=== PATIENT | female | born 1975 | race Caucasian/White ===

== ENCOUNTER 2017-12-30 12:23 | Emergency (ER) | payer SELFPAY ==
[~2017-12-30] VITALS: Ht 165.1 cm; Wt 68.0 kg
[~2017-12-30 12:23] MED LIST: CIPR500T4 PO; DEPA500T PO; DEPA500T3 PO; DIPH1TAB36 PO; QUET100 PO
[2017-12-30 12:24] VITALS: BP 105/70; PULSE 89; RESP 22; TEMP 98.1; O2SAT 99
[2017-12-30 13:02] LABS: AUTOMATED NEUTROPHIL # 4.6 TH/MM3 (1.8-7.7); BASOPHIL # 0.1 TH/MM3 (0-0.2); BASOPHIL % 0.9 % (0.0-2.0); EOSINOPHIL # 0.2 TH/MM3 (0-0.4); EOSINOPHIL % 2.3 % (0.0-4.0); HEMATOCRIT 40.8 % (35.0-46.0); HEMOGLOBIN 13.7 GM/DL (11.6-15.3); LYMPH % 36.3 % (9.0-44.0); LYMPHOCYTE # 3.1 TH/MM3 (1.0-4.8); MEAN CELL VOLUME 86.3 FL (80.0-100.0); MEAN CORPUSCULAR HEMOGLOBIN 28.9 PG (27.0-34.0); MEAN CORPUSCULAR HGB CONC 33.5 % (32.0-36.0); MEAN PLATELET VOLUME 7.9 FL (7.0-11.0); MONO % 6.9 % (0.0-8.0); MONOCYTE # 0.6 TH/MM3 (0-0.9); NEUT % 53.6 % (16.0-70.0); PLATELET COUNT 330 TH/MM3 (150-450); RED BLOOD COUNT 4.73 MIL/MM3 (4.00-5.30); RED CELL DISTRIBUTION WIDTH 13.9 % (11.6-17.2); WHITE BLOOD COUNT 8.6 TH/MM3 (4.0-11.0)
[2017-12-30 13:18] LABS: BICARBONATE 28.7 MEQ/L (21.0-32.0); BLOOD UREA NITROGEN 12 MG/DL (7-18); CALCIUM 8.8 MG/DL (8.5-10.1); CHLORIDE 106 MEQ/L (98-107); CREATININE 1.06 MG/DL (0.50-1.00); GLOMERULAR FILTRATION RATE 57 ML/MIN (>89); GLUCOSE,RANDOM 68 MG/DL (74-106); SODIUM (NA) 141 MEQ/L (136-145)
[2017-12-30 13:23] LABS: TROPONIN I LESS THAN 0.02 NG/ML (0.02-0.05)
--- NOTE | 2017-12-30 13:58 | RADRPT ---
EXAM DATE/TIME: 12/30/2017 12:57 [place] COMPARISON: No previous studies available for comparison. INDICATIONS : Right side chest pains radiating into right shoulder and right arm numbness. MEDICAL HISTORY : None. SURGICAL HISTORY : None. ENCOUNTER: Initial ACUITY: 2 weeks PAIN SCORE: 8/10 LOCATION: Right chest FINDINGS: PA and lateral views of the chest demonstrate the lungs to be symmetrically aerated without evidence of mass, infiltrate or effusion. The cardiomediastinal contours are unremarkable. Osseous structure s are intact. CONCLUSION: 1. No acute cardiopulmonary disease. Louie Luis MD on December 30, 2017 at 13:54 Board Certified Radiologist. This report was verified electronically.
[2017-12-30 14:50] VITALS: BP 102/63; PULSE 71; RESP 18; O2SAT 98
[2017-12-30] MEDS ORDERED: KETO10 PO (14:56)
[2017-12-30] MEDS ORDERED: ZITHTAB PO (14:56)
--- NOTE | 2017-12-30 14:56 | PD ---
HPI Chief Complaint: Chest Pain Time Seen by Provider: 14:43 Travel History International Travel<30 days: No Contact w/Intl Traveler<30days: No Traveled to known affect area: No History of Present Illness HPI Patient comes in complaining of a two-week duration of a productive cough yellow sputum, which does not appear to be clearing. Patient is a 1 pack a day smoker. 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 Patient has not had much of the day off since he started working and now also complains of a right sided arm pain associated with tingling over the ulnar region. No alleviating or aggravating factors. No associated factors such as fever abdominal pain back pain nausea vomiting diarrhea or runny nose Allergy: No known drug allergy Past surgical history: Hernia repair Past medical history: Denies Denies any medications Family history risk of diabetes and hypertension PFSH Past Medical History Bipolar Disorder: Yes Anxiety: Yes Depression: Yes Cancer: No Cardiovascular Problems: No Diminished Hearing: No Endocrine: No Gastrointestinal Disorders: No Genitourinary: No Immune Disorder: No Musculoskeletal: No Neurologic: Yes Psychiatric: Yes (BELIEVES SHE IS UNDIAGNOSED) Reproductive: No Respiratory: No Immunizations Current: Yes : 2 Para: 1 Miscarriage: 1 : 0 Past Surgical History Other Surgery: Yes Social History Alcohol Use: Yes Tobacco Use: Yes (1 PPD) Substance Use: Yes (HX OF COCAINE) Allergies-Medications (Allergen,Severity, Reaction): Coded Allergies: diphenhydramine (Unverified Allergy, Severe, THROAT SWELLS, 12/30/17) Per pt. Reported Meds & Prescriptions Reported Meds & Active Scripts Active Review of Systems General / Constitutional: No: Fever Eyes: No: Visual changes HENT: No: Headaches Cardiovascular: Positive: Chest Pain or Discomfort Respiratory: No: Shortness of Breath Gastrointestinal: No: Abdominal Pain Genitourinary: No: Dysuria Musculoskeletal: No: Pain Skin: No Rash Neurologic: No: Weakness Psychiatric: No: Depression Endocrine: No: Polydipsia Hematologic/Lymphatic: No: Easy Bruising Physical Exam Narrative GENERAL: SKIN: Warm and dry. HEAD: Atraumatic. Normocephalic. EYES: Pupils equal and round. No scleral icterus. No injection or drainage. ENT: No nasal bleeding or discharge. Mucous membranes pink and moist. NECK: Trachea midline. No JVD. CARDIOVASCULAR: Regular rate and rhythm. RESPIRATORY: No accessory muscle use. RONCHI ON BREATH SOUNDS GASTROINTESTINAL: Abdomen soft, non-tender, nondistended. MUSCULOSKELETAL: Extremities without clubbing, cyanosis, or edema. No obvious deformities. FROM AT RIGHT SHOULDER/ELBOW AND EXCELLENT PERFUSION WITH STRONG RADIAL PULSES AND PYROTECHNICS PRESS TENDER<2 SEC NEUROLOGICAL: Awake and alert. No obvious cranial nerve deficits. Motor grossly within normal limits. Five out of 5 muscle strength in the arms and legs. Normal speech. PSYCHIATRIC: Appropriate mood and affect; insight and judgment normal. Data Data Last Documented VS Vital Signs Date Time Temp Pulse Resp B/P (MAP) Pulse Ox O2 Delivery O2 Flow Rate FiO2 12/30/17 14:32 Room Air 12/30/17 12:24 98.1 89 22 105/70 (82) 99 Orders Orders Electrocardiogram (12/30/17 12:32) Complete Blood Count With Diff (12/30/17 12:32) Basic Metabolic Panel (Bmp) (12/30/17 12:32) Ckmb (Isoenzyme) Profile (12/30/17 12:32) Troponin I (12/30/17 12:32) Chest, Pa & Lat (12/30/17 12:32) Labs Laboratory Tests Test 12/30/17 12:50 White Blood Count 8.6 TH/MM3 Red Blood Count 4.73 MIL/MM3 Hemoglobin 13.7 GM/DL Hematocrit 40.8 % Mean Corpuscular Volume 86.3 FL Mean Corpuscular Hemoglobin 28.9 PG Mean Corpuscular Hemoglobin Concent 33.5 % Red Cell Distribution Width 13.9 % Platelet Count 330 TH/MM3 Mean Platelet Volume 7.9 FL Neutrophils (%) (Auto) 53.6 % Lymphocytes (%) (Auto) 36.3 % Monocytes (%) (Auto) 6.9 % Eosinophils (%) (Auto) 2.3 % Basophils (%) (Auto) 0.9 % Neutrophils # (Auto) 4.6 TH/MM3 Lymphocytes # (Auto) 3.1 TH/MM3 Monocytes # (Auto) 0.6 TH/MM3 Eosinophils # (Auto) 0.2 TH/MM3 Basophils # (Auto) 0.1 TH/MM3 CBC Comment DIFF FINAL Differential Comment Blood Urea Nitrogen 12 MG/DL Creatinine 1.06 MG/DL Random Glucose 68 MG/DL Calcium Level 8.8 MG/DL Sodium Level 141 MEQ/L Potassium Level 4.1 MEQ/L Chloride Level 106 MEQ/L Carbon Dioxide Level 28.7 MEQ/L Anion Gap 6 MEQ/L Estimat Glomerular Filtration Rate 57 ML/MIN Total Creatine Kinase 84 U/L Troponin I LESS THAN 0.02 NG/ML MDM Medical Decision Making Medical Screen Exam Complete: Yes Emergency Medical Condition: Yes Medical Record Reviewed: Yes Interpretation(s) EKG: Normal sinus rhythm at 66, normal intervals, no STEMI pattern noted. Pulse ox: Excellent PLETH WAVE, 98% on room air which is within normal limits Differential Diagnosis Chest wall pain versus pneumonia versus pneumothorax versus bronchitis versus COPD versus asthma Narrative Course On examination patient's troponin and EKG are negative for any STEMI type pattern. Chest x-ray is negative for any consolidation consistent with pneumonia. CBC is negative for any leukocytosis neutrophilia or anemia. Diagnosis Primary Impression: BRONCHITIS Additional Impression: RIGHT ULNAR NEUROPATHY Patient Instructions: General Instructions, Peripheral Neuropathy (ED) Departure Forms: Tests/Procedures, Work Release Enter return to work date: Jan 01, 2018 Scripts Ketorolac (Ketorolac) 10 Mg Tab 10 MG PO TID Y for Pain Management, #12 TAB 0 Refills Prov: Antonio Holder MD 12/30/17 Azithromycin (Zithromax Z-Rogelio) 250 Mg Dspk 250 MG PO DIRECTED for Infection, #1 DSPK 0 Refills 500 MG (2 tabs) day 1, then 1 tab days 2-5. Prov: Antonio Holder MD 12/30/17 Disposition: 01 DISCHARGE HOME Condition: Stable Antonio Holder MD Dec 30, 2017 14:56
--- NOTE | 2017-12-31 15:40 | EKG ---
Date Performed: 12/30/2017 Time Performed: 12:45:36 PTAGE: 42 years EKG: Sinus rhythm NORMAL ECG NO PREVIOUS TRACING DOCTOR: Mike Dennison Interpretating Date/Time 12/31/2017 15:38:20
== END 2017-12-30 15:16 | disposition home or self-care (01) ==
LOC: NEPC 12:23
DX: J40 Bronchitis, not specified as acute or chronic (principal); G56.21 Lesion of ulnar nerve, right upper limb; F17.210 Nicotine dependence, cigarettes, uncomplicated
CPT/HCPCS: 71046; 80048; 82550; 84484; 85025; 93005